=== PATIENT | female | born 1980 | race Caucasian/White ===

== ENCOUNTER → 2016-05-12 | Outpatient (CLI) | payer BC ==
[~2016-05-12] MED LIST: ATV/1 PO; HYDR-5688 PO; LEVO100T7 PO; LEVO88TA PO
[2016-05-12 12:31] LABS: THYROID STIMULATING HORMONE 0.367 uIu/ml (0.300-4.500)
== END | disposition home or self-care (01) ==
LOC: C.LAB1850 10:54
PROVIDERS: ATTEND Internal Medicine Endocrinology, Diabetes & Metabolism
DX: E03.9 Hypothyroidism, unspecified (principal)

== ENCOUNTER → 2016-06-09 | Outpatient (CLI) | payer BC ==
[2016-06-09 14:27] LABS: THYROID STIMULATING HORMONE 0.223 uIu/ml (0.300-4.500)
== END | disposition home or self-care (01) ==
LOC: C.LAB1850 11:38
PROVIDERS: ATTEND Internal Medicine Endocrinology, Diabetes & Metabolism
DX: E03.9 Hypothyroidism, unspecified (principal)

== ENCOUNTER 2016-06-23 19:27 | Emergency (ER) | payer BC ==
[~2016-06-23] VITALS: Ht 176.5 cm; Wt 63.8 kg
[~2016-06-23 19:27] MED LIST changes: -ATV/1 PO; -HYDR-5688 PO; -LEVO88TA PO
[2016-06-23 19:29] VITALS: TEMP 37; Ht 176.5 cm; Wt 63.8 kg
[2016-06-23 19:58] LABS: URINE APPEARANCE CLEAR (CLEAR); URINE BILIRUBIN NEG (NEG); URINE COLOR YELLOW; URINE NITRITE NEG (NEG); URINE PH 6.5 (4.5-7.5); URINE SPECIFIC GRAVITY 1.007 (1.000-1.030); UROBILINOGEN NEG (NEG); ZZUR CULT IF INDIC CLEAN CATCH NO
[2016-06-23 19:59] LABS: MANUAL MICROSCOPIC REQUIRED? NO; REVIEW REQ? NO
[2016-06-23] MEDS ORDERED: LORAZEPAM 1 MG TAB SL STA (21:04)
[2016-06-23] MEDS ORDERED: ATV/1 PO (21:07)
[2016-06-23] MEDS ORDERED: ATIVAN 1MG HOMEPACK PO ONE (21:15)
--- NOTE | 2016-06-23 21:21 | EMERGENCY ROOM VISIT NOTE ---
History Report prepared by Kristian: Amber Merino Under the Supervision of: Dr. Milton Graves M.D. First contact with patient: 20:55 Chief Complaint: CARDIAC ASSESSMENT Stated Complaint: SOB, RAPID HEARTRATE Nursing Triage Summary: Patient ambulatory to triage, states "I had surgery on my left knee today at [facility]. I told the anesthesiologist that every time I am put to sleep, I have issues with anxiety when I am discharged home. He gave me some ativan through my IV prior to the procedure around noon. I was fine when I woke up. At home, after the rest of the anesthesia wore off, I started to feel short of breath and anxious. It sometimes feels like my heart is racing and twisting but I have no chest pain. 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 The patient states that she had a meniscus repair in her knee today. She notes that before the surgery she told her doctor that she gets severe anxiety only after she is coming off of anesthesia. He gave her an anti anxiety medication before the surgery and now that it has worn off the patient states that she is having the anxious feeling that she gets. She complains of a rapid heart rate and shortness of breath. She denies any chest pain and abdominal pain. She notes that she has hyperthyroidism. Source of History: patient Onset: just MARKETING WRITER Position: other (global) Quality: other (anxiety) Timing: constant Associated Symptoms: + SOB, No abdominal pain, No chest pain Note: Pt complains of rapid heart rate. Review of Systems See HPI for pertinent positives & negatives. A total of 10 systems reviewed and were otherwise negative. Past Medical & Surgical Surgical Problems: (1) H/O: knee surgery Family History No pertinent family history stated. Social History Smoking Status: Current Some Day Smoker Marital Status: Housing Status: lives with family Occupation Status: employed Current/Historical Medications Scheduled Levothyroxine Sodium (Synthroid), 88 MCG PO DAILY Scheduled PRN Hydrocodone/Acetaminophen 5MG/325MG ([place] 5MG/325MG), 1-2 TABLET PO Q4 PRN for Pain Lorazepam (Ativan), 1 MG PO Q6H PRN for Anxiety/Agitation Allergies Coded Allergies: Cefaclor (Verified Allergy, Mild, RASH, 3/31/17) Penicillins (Verified Allergy, Mild, 06/23/16) RASH,SHAKES Sulfamethoxazole (Verified Allergy, Mild, 06/23/16) RASH Amoxicillin (Verified Allergy, Unknown, RASH, 06/23/16) Cephalosporins (Verified Allergy, Unknown, 06/23/16) Clavulanic Acid (Verified Allergy, Unknown, RASH, 06/23/16) Sulfa Drugs (Verified Allergy, Unknown, 06/23/16) Macrolides (Verified Adverse Reaction, Severe, PAIN IN STOMACH, 06/23/16) Erythromycin (Verified Adverse Reaction, Mild, GI SYMPTOMS, 06/23/16) Physical Exam Vital Signs Date Time Temp Pulse Resp B/P Pulse Ox O2 Delivery O2 Flow Rate FiO2 06/23/16 22:10 51 16 109/61 96 06/23/16 21:01 63 06/23/16 20:52 64 16 137/82 98 Room Air 06/23/16 19:29 99 Room Air 06/23/16 19:29 37.0 74 16 121/71 99 Room Air Physical Exam GENERAL: Patient is a healthy-appearing well-nourished HEAD: Normocephalic atraumatic EYES: Ocular movements intact pupils equal and react to light OROPHARYNX mucous membranes are moist no exudates present no erythema or edema present NECK: Supple no nuchal rigidity CHEST: Good equal expansion LUNGS: Clear and equal to auscultation CARDIAC: Normal S1 and S2 ABDOMEN: Soft nontender no guarding BACK: No CVA tenderness EXTREMITIES: No pain upon palpation normal muscle strength in all groups no clubbing cyanosis or edema. Bandage applied to left leg. NEURO: Patient is following commands is answering questions appropriately. Alert and oriented x3 Cranial Nerves 2-12 grossly intact Medical Decision & Procedures Laboratory Results Test 06/23/16 19:35 Urine Color YELLOW Urine Appearance CLEAR (CLEAR) Urine pH 6.5 (4.5-7.5) Urine Specific [place] 1.007 (1.000-1.030) Urine Protein NEG (NEG) Urine Glucose (UA) 1+ (NEG) Urine Ketones NEG (NEG) Urine Occult Blood TRACE (NEG) Urine Nitrite NEG (NEG) Urine Bilirubin NEG (NEG) Urine Urobilinogen NEG (NEG) Urine Leukocyte Esterase NEG (NEG) Urine WBC (Auto) 1-5 /hpf (0-5) Urine RBC (Auto) 0-4 /hpf (0-4) Urine Hyaline Casts (Auto) 0 /lpf (0-5) Urine Epithelial Cells (Auto) 10-20 /lpf (0-5) Urine Bacteria (Auto) NEG (NEG) Urine Test NEG (NEG) Labs reviewed by ED physician. Medications Administered Medications (Trade) Dose Ordered Sig/Jarod Route Start Time Stop Time Status Last Admin Dose Admin Lorazepam (Ativan 1MG Home Pack) 1 homepack UD ONCE PO 06/23/16 21:15 06/23/16 21:16 DC 06/23/16 22:05 1 HOMEPACK Lorazepam (Ativan Tab) 1 mg NOW STAT SL 06/23/16 21:04 06/23/16 21:05 DC 06/23/16 21:10 1 MG ECG Indication: other (rapid heart rate feeling) Rate (beats per minute): 67 Rhythm: normal sinus Findings: no acute ischemic change, no ectopy ED Course 2054: Past medical records reviewed. The patient was evaluated in room A3. A complete history and physical examination was performed. 2103: Ativan Tab 1mg SL. 2114: Lorazepam 1 homepack PO. 2118: Upon reexamination the patient is hemodynamically stable. I discussed results and treatment plan with the patient. She verbalizes agreement and understanding. The patient is ready for discharge. Medical Decision Differential diagnosis: Etiologies such as mood disorder, infection, hypoglycemia, electrolyte abnormalities, cardiac sources, intracerebral event, toxicologic, neurologic, as well as others were entertained. This is a 36-year-old female who presents emergency department complaining of anxiety after receiving sedation today for a knee procedure. The patient is not tachycardic and denies any chest pain. She also has a normal EKG. Based on these findings my suspicion of PE is low. The patient was given Ativan in the emergency department. Repeat examination revealed improvement patient's symptoms. Patient was given a short supply of Ativan for home and will follow- up with her orthopedic surgeon. Patient was in agreement with the treatment plan. Impression Primary Impression: Anxiety Scribe Attestation The scribe's documentation has been prepared under my direction and personally reviewed by me in its entirety. I confirm that the note above accurately reflects all work, treatment, procedures, and medical decision making performed by me. Departure Information Dispostion Home / Self-Care Prescriptions Lorazepam (ATIVAN) 1 Mg Tab 1 MG PO Q6H Y for Anxiety/Agitation, #6 TAB Prov: Milton Graves MD 06/23/16 Referrals No Doctor, Assigned (PCP) Forms IMPORTANT VISIT INFORMATION Patient Instructions Anxiety Body Response, My [facility] Additional Instructions You have been examined and treated today on an emergency basis only. This is not a substitute for, or an effort to provide, complete comprehensive medical care. It is impossible to recognize and treat all injuries or illnesses in a single emergency department visit. It is therefore important that you follow up closely with your PCP. Call as soon as possible for an appointment. Thank you for your time and consideration. I look forward to speaking with you again soon. Please don't hesitate to call us if you have any questions.
[2016-06-23] MEDS ORDERED: HYDR-5688 PO (21:43)
[2016-06-23] MEDS ORDERED: LEVO88TA PO (21:43)
[2016-06-23 22:10] VITALS: BP 109/61; PULSE 51; O2SAT 96
== END 2016-06-23 22:10 | disposition home or self-care (01) ==
LOC: C.EDB 19:27 → C.EDA 22:10
DX: F41.9 Anxiety disorder, unspecified (principal); E05.90 Thyrotoxicosis, unspecified without thyrotoxic crisis or storm; F17.200 Nicotine dependence, unspecified, uncomplicated

== ENCOUNTER → 2016-07-07 | Outpatient (CLI) | payer BC ==
[~2016-07-07] MED LIST changes: +HYDR-5688 PO; -LEVO100T7 PO; +LEVO88TA PO
[2016-07-07 13:09] LABS: THYROID STIMULATING HORMONE 0.604 uIu/ml (0.300-4.500)
== END | disposition home or self-care (01) ==
LOC: C.LABPBG 11:09
PROVIDERS: ATTEND Physician Assistant
DX: E03.9 Hypothyroidism, unspecified (principal)

== ENCOUNTER → 2016-09-11 | Outpatient (CLI) | payer BC ==
[2016-09-11 10:52] LABS: THYROID STIMULATING HORMONE 0.525 uIu/ml (0.300-4.500)
== END | disposition home or self-care (01) ==
LOC: C.LAB1850 09:31
PROVIDERS: ATTEND Physician Assistant
DX: E03.9 Hypothyroidism, unspecified (principal)

== ENCOUNTER → 2016-10-21 | Outpatient (CLI) | payer BC ==
[2016-11-01 07:32] LABS: O&P SOURCE OTHER-STOOL
== END | disposition home or self-care (01) ==
LOC: C.LABBC 09:09
PROVIDERS: ATTEND Internal Medicine
DX: B83.9 Helminthiasis, unspecified (principal)

== ENCOUNTER → 2016-12-22 | Outpatient (CLI) | payer BC | END | disposition home or self-care (01) | LOC: C.LAB1850 10:42 | PROVIDERS: ATTEND Physician Assistant | DX: E03.9 Hypothyroidism, unspecified (principal) ==

== ENCOUNTER → 2017-01-05 | Outpatient (CLI) | payer BC | END | disposition home or self-care (01) | LOC: C.LAB1850 11:31 | PROVIDERS: ATTEND Neuromusculoskeletal Medicine & OMM | DX: E03.9 Hypothyroidism, unspecified (principal); F41.9 Anxiety disorder, unspecified ==

== ENCOUNTER → 2017-03-08 | Outpatient (CLI) | payer BC ==
[2017-03-08 16:39] LABS: BASO % 0.5 %; BASO ABS # 0.04 K/uL (0-0.2); EOS ABS # 0.15 K/uL (0-0.5); HEMOGLOBIN 14.3 g/dL (12.0-16.0); IG# 0.02 K/uL (0.00-0.02); LYMPH % 39.1 %; LYMPH ABS # 2.97 K/uL (1.2-3.4); MEAN CELL VOLUME 88.6 fL (80-100); MEAN CORPUSCULAR HEMOGLOBIN 30.9 pg (25-34); MEAN CORPUSCULAR HGB CONC 34.9 g/dl (32-36); MEAN PLATELET VOLUME 10.5 fL (7.4-10.4); MONO % 7.5 %; MONO ABS # 0.57 K/uL (0.11-0.59); NEUT % 50.6 %; NEUT ABS # 3.84 K/uL (1.4-6.5); PLATELET COUNT 276 K/uL (130-400); RED CELL DISTRIBUTION WIDTH CV 12.7 % (11.5-14.5); RED CELL DISTRIBUTION WIDTH SD 40.4 fL (36.4-46.3); WHITE BLOOD COUNT 7.59 K/uL (4.8-10.8)
[2017-03-08 16:59] LABS: ALBUMIN 4.1 gm/dl (3.4-5.0); ALT/SGPT 19 U/L (12-78); BLOOD UREA NITROGEN 12 mg/dl (7-18); CALCIUM 8.3 mg/dl (8.5-10.1); CARBON DIOXIDE 24 mmol/L (21-32); CREATININE 0.79 mg/dl (0.60-1.20); GLUCOSE 117 mg/dl (70-99); POTASSIUM 3.7 mmol/L (3.5-5.1); SODIUM 137 mmol/L (136-145)
[2017-03-08 17:09] LABS: ALKALINE PHOSPHATASE 39 U/L (45-117); AST/SGOT 11 U/L (15-37); TOTAL PROTEIN 7.6 gm/dl (6.4-8.2)
[2017-03-08 17:10] LABS: FOLLICLE STIMULAT HORMONE 2.86 IU/L; LUTEINIZING HORMONE 3.35 IU/L
[2017-03-09 06:23] LABS: HEMOGLOBIN A1C 5.3 % (4.5-5.6)
== END | disposition home or self-care (01) ==
LOC: C.LABSPEC 15:22
PROVIDERS: ATTEND Neuromusculoskeletal Medicine & OMM
DX: E03.9 Hypothyroidism, unspecified (principal); F41.9 Anxiety disorder, unspecified; E06.9 Thyroiditis, unspecified; Z00.00 Encounter for general adult medical examination without abnormal findings; Z86.32 Personal history of gestational diabetes

== ENCOUNTER → 2017-07-06 | Outpatient (CLI) | payer BC | END | disposition home or self-care (01) | LOC: C.LAB1850 10:39 | PROVIDERS: ATTEND Physician Assistant | DX: E03.9 Hypothyroidism, unspecified (principal) ==